=== PATIENT | female | born 1990 | race Caucasian/White ===

== ENCOUNTER 2017-01-04 09:26 | Emergency (ER) | payer MEDICAID ==
[~2017-01-04] VITALS: Ht 162.6 cm; Wt 71.4 kg
[2017-01-04 10:37] VITALS: BP 145/75
== END 2017-01-04 10:37 | disposition home or self-care (01) ==
LOC: ED 09:26
DX: N61.0 Mastitis without abscess (principal)

== ENCOUNTER 2017-08-12 22:37 | Emergency (ER) | payer MEDICAID ==
[~2017-08-12] VITALS: Ht 162.6 cm; Wt 73.0 kg
[2017-08-12 22:41] VITALS: Ht 162.6 cm; Wt 73.0 kg
[2017-08-13 00:13] LABS: BASOPHIL % 0.7 % (0-2); PLATELET COUNT 370 x10^3mcL (130-400); RED CELL DISTRIBUTION WIDTH 13.2 % (11.5-14.5)
[2017-08-13 00:31] LABS: CALCIUM 8.5 mg/dL (8.5-10.1); CHLORIDE SERUM 104 mmol/L (98-107); CREATININE SERUM 0.6 mg/dL (0.6-1.0); GFR1 > 60 mL/min; GLUCOSE SERUM 100 mg/dL (74-106); POTASSIUM SERUM 3.7 mmol/L (3.5-5.1); SODIUM SERUM 139 mmol/L (136-145)
[2017-08-13 00:36] LABS: ALBUMIN 3.5 g/dL (3.4-5.0); ALKALINE PHOSPHATASE 118 U/L (46-116); ALT/SGPT 22 U/L (14-59); AST/SGOT 13 U/L (15-37); BILIRUBIN TOTAL 0.2 mg/dL (0.20-1.00); LIPASE 199 IU/L (73-393); TOTAL PROTEIN, SERUM 7.8 g/dL (6.4-8.2)
[2017-08-13 01:01] LABS: UA SPECIFIC GRAVITY 1.015 (1.005-1.035); microscopic required? YES; urine erythrocyte TRACE (NEGATIVE)
[2017-08-13 05:11] VITALS: BP 123/89
== END 2017-08-13 05:11 | disposition home or self-care (01) ==
LOC: ED 22:37
PROVIDERS: Emergency Medicine
DX: N76.0 Acute vaginitis (principal); D25.9 Leiomyoma of uterus, unspecified; G43.909 Migraine, unspecified, not intractable, without status migrainosus
CPT/HCPCS: 87491; 87591; J0696; J2270; J2405; J7030; Q0092; Q0162; Q9967

== ENCOUNTER 2017-08-15 02:50 | Emergency (ER) | payer MEDICAID ==
[~2017-08-15] VITALS: Ht 162.6 cm; Wt 74.4 kg
[2017-08-15 02:58] VITALS: Ht 162.6 cm; Wt 74.4 kg
[2017-08-15 04:07] VITALS: BP 114/82
== END 2017-08-15 04:07 | disposition home or self-care (01) ==
LOC: ED 02:50
DX: K52.9 Noninfective gastroenteritis and colitis, unspecified (principal); G43.909 Migraine, unspecified, not intractable, without status migrainosus
CPT/HCPCS: Q0162

== ENCOUNTER 2017-09-05 23:41 | Emergency (ER) | payer MEDICAID ==
[2017-09-06 00:03] VITALS: BP 102/50
== END 2017-09-06 02:25 | disposition left against medical advice (07) ==
LOC: ED 23:41
DX: Z53.21 Procedure and treatment not carried out due to patient leaving prior to being seen by health care provider (principal)

== ENCOUNTER 2018-04-09 15:33 | Emergency (ER) | payer MEDICAID ==
[~2018-04-09] VITALS: Ht 162.6 cm; Wt 76.2 kg
[~2018-04-09 15:33] MED LIST: AMITRIPTYLINE H10 MG PO; FIORICET1 CAP PO; MAC100 PO; ZOF4 PO
[2018-04-09 15:41] VITALS: Ht 162.6 cm; Wt 76.2 kg
[2018-04-09 17:03] LABS: CALCIUM 8.7 mg/dL (8.5-10.1); CARBON DIOXIDE 25.6 mmol/L (21-32); CHLORIDE SERUM 103 mmol/L (98-107); CREATININE SERUM 0.7 mg/dL (0.6-1.0); GFR1 > 60 mL/min; GLUCOSE SERUM 104 mg/dL (74-106); POTASSIUM SERUM 4.3 mmol/L (3.5-5.1); SODIUM SERUM 137 mmol/L (136-145)
[2018-04-09 17:04] LABS: BASOPHIL % 0.3 % (0-2); RED CELL DISTRIBUTION WIDTH 13.6 % (11.5-14.5)
[2018-04-09 17:06] LABS: ALBUMIN 3.6 g/dL (3.4-5.0); ALKALINE PHOSPHATASE 129 U/L (46-116); ALT/SGPT 27 U/L (14-59); AST/SGOT 14 U/L (15-37); BILIRUBIN TOTAL 0.2 mg/dL (0.20-1.00); CHOLESTEROL 181 mg/dL (<200); PHOSPHOROUS 3.2 mg/dL (2.5-4.9); TOTAL PROTEIN, SERUM 8.1 g/dL (6.4-8.2); URIC ACID 4.6 mg/dL (2.6-6.0)
[2018-04-09 17:09] LABS: HDL CHOLESTEROL 28 mg/dL (40-60)
[2018-04-09 17:10] LABS: PLATELET COUNT 416 x10^3mcL (130-400)
[2018-04-09 18:03] VITALS: BP 117/75
== END 2018-04-09 18:03 | disposition home or self-care (01) ==
LOC: ED 15:33
PROVIDERS: Emergency Medicine
DX: G43.909 Migraine, unspecified, not intractable, without status migrainosus (principal)
CPT/HCPCS: 36415; J0780; J1885; Q0092

== ENCOUNTER 2018-04-15 07:12 | Emergency (ER) | payer MEDICAID ==
[~2018-04-15] VITALS: Ht 162.6 cm; Wt 76.3 kg
[2018-04-15 07:26] VITALS: Ht 162.6 cm; Wt 76.3 kg
[2018-04-15 09:30] VITALS: BP 121/79
== END 2018-04-15 09:30 | disposition home or self-care (01) ==
LOC: ED 07:12
DX: N92.0 Excessive and frequent menstruation with regular cycle (principal)
CPT/HCPCS: J1885

== ENCOUNTER 2018-05-26 18:30 | Emergency (ER) | payer MEDICAID ==
[2018-05-26 18:35] VITALS: Ht 162.6 cm
[2018-05-26 20:42] LABS: BASOPHIL % 0.2 % (0-2); RED CELL DISTRIBUTION WIDTH 14.3 % (11.5-14.5)
[2018-05-26 20:44] LABS: PLATELET COUNT 576 x10^3mcL (130-400)
[2018-05-26 20:55] LABS: CALCIUM 9.8 mg/dL (8.5-10.1); CARBON DIOXIDE 24.4 mmol/L (21-32); CHLORIDE SERUM 104 mmol/L (98-107); CREATININE SERUM 0.8 mg/dL (0.6-1.0); GFR1 > 60 mL/min; GLUCOSE SERUM 116 mg/dL (74-106); POTASSIUM SERUM 3.6 mmol/L (3.5-5.1); SODIUM SERUM 140 mmol/L (136-145)
[2018-05-26 23:20] VITALS: BP 142/64
== END 2018-05-26 23:20 | disposition home or self-care (01) ==
LOC: ED 18:30
PROVIDERS: Emergency Medicine
DX: G43.909 Migraine, unspecified, not intractable, without status migrainosus (principal); R06.4 Hyperventilation; D21.9 Benign neoplasm of connective and other soft tissue, unspecified
CPT/HCPCS: 36415; J1885; J3010; Q0162

== ENCOUNTER 2019-07-10 12:37 | Emergency (ER) | payer MEDICAID ==
[~2019-07-10] VITALS: Ht 162.6 cm; Wt 74.4 kg
[2019-07-10 13:23] VITALS: Ht 162.6 cm; Wt 74.4 kg
[2019-07-10 15:33] VITALS: BP 114/72
== END 2019-07-10 15:33 | disposition home or self-care (01) ==
LOC: ED 12:37
DX: M79.674 Pain in right toe(s) (principal); G43.909 Migraine, unspecified, not intractable, without status migrainosus

== ENCOUNTER 2019-09-01 00:42 | Emergency (ER) | payer SELFPAY ==
[~2019-09-01] VITALS: Ht 162.6 cm; Wt 75.7 kg
[2019-09-01 00:49] VITALS: Ht 162.6 cm; Wt 75.7 kg
[2019-09-01 01:34] LABS: BASOPHIL % 1.5 % (0-2)
[2019-09-01 01:37] LABS: CALCIUM 8.4 mg/dL (8.5-10.1); CARBON DIOXIDE 27.4 mmol/L (21-32); CHLORIDE SERUM 104 mmol/L (98-107); CREATININE SERUM 0.7 mg/dL (0.6-1.0); GFR1 > 60 mL/min; GLUCOSE SERUM 104 mg/dL (74-106); PLATELET COUNT 434 x10^3mcL (130-400); POTASSIUM SERUM 3.9 mmol/L (3.5-5.1); RED CELL DISTRIBUTION WIDTH 15.4 % (11.5-14.5); SODIUM SERUM 140 mmol/L (136-145)
[2019-09-01 01:42] LABS: ALKALINE PHOSPHATASE 111 U/L (46-116); ALT/SGPT 15 U/L (14-59); AMYLASE 61 U/L (25-115); AST/SGOT 17 U/L (15-37); BILIRUBIN TOTAL 0.16 mg/dL (0.20-1.00); LIPASE 165 IU/L (73-393); TOTAL PROTEIN, SERUM 7.5 g/dL (6.4-8.2)
[2019-09-01 01:57] LABS: ALBUMIN 3.1 g/dL (3.4-5.0)
[2019-09-01 02:09] LABS: microscopic required? YES; urine erythrocyte NEGATIVE (NEGATIVE)
[2019-09-01 03:57] VITALS: BP 120/60
== END 2019-09-01 03:55 | disposition home or self-care (01) ==
LOC: ED 00:42
PROVIDERS: Emergency Medicine
DX: R10.32 Left lower quadrant pain (principal)
CPT/HCPCS: 36415; 87491; 87591; J1885